=== PATIENT | female | born 1960 | race Caucasian/White ===

== ENCOUNTER → 2019-05-04 | Day surgery (SDC) | payer MEDICAID ==
[~2019-05-04] VITALS: Ht 165.1 cm; Wt 67.1 kg
[~2019-05-04] MED LIST: LIDOCAINE HCL 1% 20ML VIAL (Pyxis) INJ ONE; SODIUM BICARBONATE 4% (2.4MEQ) 5ML VIAL IV ONE
[2019-05-04 10:59] LABS: GLUCOSE CSF 50 mg/dL (41-75)
== END | disposition home or self-care (01) ==
LOC: ANGIO 09:05
PROVIDERS: ATTEND Psychiatry & Neurology Neurology
DX: G35 Multiple sclerosis (principal); Z88.5 Allergy status to narcotic agent
CPT/HCPCS: 62270; 77003; 82040; 82042; 82784; 82945; 83873; 83916; 84157; 89050; J3490